=== PATIENT | male | born 1960 | race Caucasian/White ===

== ENCOUNTER 2020-10-27 12:57 | Emergency (ER) | payer SELFPAY ==
[~2020-10-27] VITALS: Ht 172.7 cm; Wt 108.9 kg
[~2020-10-27 12:57] MED LIST: DOXYCYCLINE100 M3 PO; HYDROCODONE-APA1 TA1 PO; NAPROXEN SODIU500 MG PO
[2020-10-27] MEDS ORDERED: ERYTHROMYCIN OPH1 GM OPH (13:54)
== END 2020-10-27 14:00 | disposition home or self-care (01) ==
LOC: ED 12:57
DX: S05.01XA Injury of conjunctiva and corneal abrasion without foreign body, right eye, initial encounter (principal); Z79.2 Long term (current) use of antibiotics; Z79.899 Other long term (current) drug therapy; W22.8XXA Striking against or struck by other objects, initial encounter; Y93.89 Activity, other specified; Y92.89 Other specified places as the place of occurrence of the external cause; Y99.8 Other external cause status

== ENCOUNTER 2022-07-23 16:18 | Emergency (ER) | payer SELFPAY ==
[~2022-07-23] VITALS: Ht 172.7 cm; Wt 108.9 kg
[~2022-07-23 16:18] MED LIST changes: +ERYTHROMYCIN OPH1 GM OPH
[2022-07-23] MEDS ORDERED: POLYSPORIN OINT15 GM T (18:47)
[2022-07-23] MEDS ORDERED: CEPHALEXIN500 M1 PO (18:47)
[2022-07-23] MEDS ORDERED: TYLENOL325 M1 PO (18:47)
== END 2022-07-23 19:10 | disposition home or self-care (01) ==
LOC: ED 16:18
DX: S61.211A Laceration without foreign body of left index finger without damage to nail, initial encounter (principal); W45.8XXA Other foreign body or object entering through skin, initial encounter; Y93.89 Activity, other specified; Y92.89 Other specified places as the place of occurrence of the external cause; Y99.8 Other external cause status

== ENCOUNTER 2024-02-22 19:30 | Emergency (ER) | payer MEDICARE ==
[~2024-02-22] VITALS: Ht 172.7 cm; Wt 78.0 kg
[~2024-02-22 19:30] MED LIST changes: +CEPHALEXIN500 M1 PO; +POLYSPORIN OINT15 GM T; +TYLENOL325 M1 PO
[2024-02-22 20:13] LABS: BASO % 0.4 % (0.0-1.0); EOS # 0.2 10*3/uL (0.0-0.4); EOS % 1.9 % (1.0-4.0); HEMATOCRIT 43.1 % (42.0-52.0); LYMPH # 2.1 10*3/uL (1.3-4.4); MEAN CELL VOLUME 89.2 fl (80.0-94.0); MEAN CORPUSCULAR HGB CONC 33.6 g/dl (33.0-37.0); MEAN PLATELET VOLUME 9.8 fl (9.6-12.3); MONO # 0.8 10*3/uL (0.1-1.0); NEUT # 5.2 10*3/uL (2.3-7.9); NEUT % 62.3 % (47.0-73.0); PLATELET COUNT AUTOMATED 297 10*3/uL (130-400); RED BLOOD COUNT 4.83 10*6/uL (4.50-5.90); RED CELL DISTRI WIDTH 12.3 % (0-14.5); WHITE BLOOD COUNT 8.3 10*3/uL (4.8-10.8)
[2024-02-22 20:29] LABS: BUN 14 mg/dl (9-23); CHLORIDE 99 mmol/L (98-107); POTASSIUM 4.5 mmol/L (3.4-5.1); URIC ACID 3.9 mg/dL (3.7-9.2)
[2024-02-22] MEDS ORDERED: PREDNISONE20 M1 PO (21:23)
[2024-02-22] MEDS ORDERED: HYDROCODONE-AC1 EAC1 PO (21:23)
[2024-02-22] MEDS ORDERED: Acetaminophen/Hydrocodone 5 MG/325 MG TABLET PO ONE (21:30)
[2024-02-22] MEDS ORDERED: methylPREDNISolone sod succ 125 MG VIAL IM ONE (21:35)
== END 2024-02-22 23:24 | disposition home or self-care (01) ==
LOC: ED 19:30
PROVIDERS: Nurse Practitioner Family
DX: M17.12 Unilateral primary osteoarthritis, left knee (principal)

== ENCOUNTER 2024-03-08 17:08 | Emergency (ER) | payer MEDICARE ==
[~2024-03-08] VITALS: Ht 165.1 cm; Wt 99.8 kg
[~2024-03-08 17:08] MED LIST changes: +HYDROCODONE-AC1 EAC1 PO; +PREDNISONE20 M1 PO
[2024-03-08 17:37] LABS: BASO # 0.1 10*3/uL (0.0-0.1); BASO % 0.6 % (0.0-1.0); EOS # 0.1 10*3/uL (0.0-0.4); EOS % 1.7 % (1.0-4.0); HEMATOCRIT 43.5 % (42.0-52.0); LYMPH # 2.2 10*3/uL (1.3-4.4); LYMPH % 29.1 % (27.0-41.0); MEAN CELL VOLUME 88.1 fl (80.0-94.0); MEAN CORPUSCULAR HGB 30.4 pg (27.0-31.0); MEAN CORPUSCULAR HGB CONC 34.5 g/dl (33.0-37.0); MEAN PLATELET VOLUME 10.3 fl (9.6-12.3); MONO # 0.6 10*3/uL (0.1-1.0); MONO % 7.4 % (3.0-9.0); NEUT # 4.7 10*3/uL (2.3-7.9); NEUT % 60.7 % (47.0-73.0); PLATELET COUNT AUTOMATED 271 10*3/uL (130-400); RED BLOOD COUNT 4.94 10*6/uL (4.50-5.90); RED CELL DISTRI WIDTH 12.1 % (0-14.5); WHITE BLOOD COUNT 7.7 10*3/uL (4.8-10.8)
[2024-03-08 17:53] LABS: ALKALINE PHOSPHATASE 74 U/L (46-116); BUN 20 mg/dl (9-23); CHLORIDE 99 mmol/L (98-107); POTASSIUM 4.6 mmol/L (3.4-5.1); SGPT/ALT 21 U/L (5-49); TOTAL PROTEIN 6.5 gm/dL (6.0-8.0)
== END 2024-03-08 18:50 | disposition home or self-care (01) ==
LOC: ED 17:08
PROVIDERS: Physician Assistant Medical
DX: E11.65 Type 2 diabetes mellitus with hyperglycemia (principal); E87.1 Hypo-osmolality and hyponatremia

== ENCOUNTER → 2024-03-18 | Outpatient (CLI) | payer MEDICARE ==
[2024-03-18 15:19] LABS: URIC ACID 4.1 mg/dL (3.7-9.2)
[2024-03-18 16:13] LABS: BF LYMPHOCYTES 46 %; BF MACROPHAGES 2 %; BF MONOCYTES 31 %; BF NEUTROPHILS 21 %
[2024-03-19 16:08] LABS: ACID FAST SPEC PROCESSING Direct Inoculation (.)
== END | disposition home or self-care (01) ==
LOC: LAB 13:43
PROVIDERS: ATTEND Orthopaedic Surgery
DX: M25.462 Effusion, left knee (principal)

== ENCOUNTER 2025-02-26 17:52 | Emergency (ER) | payer OTHER, MEDICARE ==
[~2025-02-26] VITALS: Ht 177.8 cm; Wt 101.3 kg
[2025-02-26] MEDS ORDERED: MORPHINE Sulfate 2 MG/ML SYR IV ONE (18:20)
[2025-02-26 18:30] LABS: BASO # 0.1 10*3/uL (0.0-0.1); BASO % 0.6 % (0.0-1.0); EOS # 0.3 10*3/uL (0.0-0.4); EOS % 2.6 % (1.0-4.0); HEMATOCRIT 42.1 % (42.0-52.0); MEAN CELL VOLUME 88.4 fl (80.0-94.0); MEAN PLATELET VOLUME 10.2 fl (9.6-12.3); MONO # 0.8 10*3/uL (0.1-1.0); MONO % 8.2 % (3.0-9.0); NEUT # 6.8 10*3/uL (2.3-7.9); NEUT % 70.7 % (47.0-73.0); PLATELET COUNT AUTOMATED 249 10*3/uL (130-400); RED BLOOD COUNT 4.76 10*6/uL (4.50-5.90); RED CELL DISTRI WIDTH 12.6 % (0-14.5); WHITE BLOOD COUNT 9.6 10*3/uL (4.8-10.8)
[2025-02-26] MEDS ORDERED: IOHEXOL 300 MG/ML 100 ML VIAL IV ONE (18:50)
[2025-02-26 19:00] LABS: BUN 20 mg/dl (9-23); CHLORIDE 102 mmol/L (98-107); LIPASE 455 U/L (12-53); POTASSIUM 4.5 mmol/L (3.4-5.1)
[2025-02-26] MEDS ORDERED: Acetaminophen/Oxycodone 5 MG/325 MG TABLET PO ONE (21:55)
[2025-02-26] MEDS ORDERED: PERCOCET 5-3251 EACH PO (21:57)
== END 2025-02-26 22:31 | disposition home or self-care (01) ==
LOC: ED 17:52
PROVIDERS: Internal Medicine
DX: T14.8XXA Other injury of unspecified body region, initial encounter (principal); M54.9 Dorsalgia, unspecified; M54.2 Cervicalgia; M79.604 Pain in right leg; M79.605 Pain in left leg; R10.12 Left upper quadrant pain; V09.9XXA Pedestrian injured in unspecified transport accident, initial encounter; Y93.89 Activity, other specified; Y92.89 Other specified places as the place of occurrence of the external cause; Y99.8 Other external cause status